=== PATIENT | female | born 1990 | race Caucasian/White ===

== ENCOUNTER 2017-09-21 23:35 | Emergency (ER) | payer BC ==
[~2017-09-21] VITALS: Ht 162.6 cm; Wt 82.0 kg
[2017-09-22] MEDS ORDERED: IBUPROFEN 800MG TABLET PO ONE (00:15)
[2017-09-22 00:19] VITALS: BP 132/80
== END 2017-09-22 01:52 | disposition home or self-care (01) ==
LOC: ER 23:35
DX: S90.01XA Contusion of right ankle, initial encounter (principal); S90.31XA Contusion of right foot, initial encounter; J45.909 Unspecified asthma, uncomplicated; F32.9 Major depressive disorder, single episode, unspecified; F41.9 Anxiety disorder, unspecified; Z88.0 Allergy status to penicillin; W18.40XA Slipping, tripping and stumbling without falling, unspecified, initial encounter; Y93.89 Activity, other specified; Y92.89 Other specified places as the place of occurrence of the external cause; Y99.8 Other external cause status
CPT/HCPCS: 73610; 73630; 99284